=== PATIENT | female | born 1955 | race Caucasian/White ===

== ENCOUNTER 2024-10-27 10:49 | Outpatient (CLI) | payer MEDICARE, MEDICAID | END 2024-10-27 10:50 | disposition home or self-care (01) | LOC: CSHSLEEP 10:49 | PROVIDERS: ATTEND Student in an Organized Health Care Education/Training Program | DX: G47.33 Obstructive sleep apnea (adult) (pediatric) (principal); R53.83 Other fatigue; R09.89 Other specified symptoms and signs involving the circulatory and respiratory systems; E66.9 Obesity, unspecified; Z68.35 Body mass index [BMI] 35.0-35.9, adult; R06.83 Snoring; G47.00 Insomnia, unspecified; G25.89 Other specified extrapyramidal and movement disorders | CPT/HCPCS: 95810 ==